=== PATIENT | male | born 1975 | race Two or more races ===

== ENCOUNTER 2019-01-08 11:54 | Emergency (ER) | payer OTHER ==
[~2019-01-08] VITALS: Ht 177.8 cm; Wt 102.1 kg
[2019-01-08] MEDS ORDERED: NEURONTIN300 MG (12:35)
== END 2019-01-08 15:06 | disposition home or self-care (01) ==
LOC: ER 11:54
DX: H92.01 Otalgia, right ear (principal)

== ENCOUNTER 2021-11-25 23:17 | Emergency (ER) | payer OTHER ==
[~2021-11-25] VITALS: Ht 177.8 cm; Wt 101.6 kg
[~2021-11-25 23:17] MED LIST: NEURONTIN300 MG
[2021-11-25] MEDS ORDERED: METFORMIN HCL500 M1 PO (23:40)
[2021-11-25] MEDS ORDERED: LOSARTAN POTASS25 MG PO (23:41)
[2021-11-25] MEDS ORDERED: ATORVASTATIN CA20 MG PO (23:41)
[2021-11-26] MEDS ORDERED: LEVOFLOXACIN500 MG PO (04:14)
[2021-11-26] MEDS ORDERED: DICLOFENAC POTA50 MG PO (04:14)
== END 2021-11-26 05:57 | disposition home or self-care (01) ==
LOC: ER 23:17
DX: L97.821 Non-pressure chronic ulcer of other part of left lower leg limited to breakdown of skin (principal); W19.XXXA Unspecified fall, initial encounter; Y93.9 Activity, unspecified; Y92.019 Unspecified place in single-family (private) house as the place of occurrence of the external cause

== ENCOUNTER 2023-02-09 23:59 | Emergency (ER) | payer OTHER ==
[~2023-02-09] VITALS: Ht 177.8 cm; Wt 104.3 kg
[~2023-02-09 23:59] MED LIST changes: +ATORVASTATIN CA20 MG PO; +DICLOFENAC POTA50 MG PO; +LEVOFLOXACIN500 MG PO; +LOSARTAN POTASS25 MG PO; +METFORMIN HCL500 M1 PO
[2023-02-10 04:02] LABS: HEMATOCRIT 48.8 % (39.0-48.0); HEMOGLOBIN 17.3 g/dL (13-16.00); MEAN CELL VOLUME 83.3 fL (80.0-100.00); MEAN CORPUSCULAR HEMOGLOBIN 29.5 pg (27.00-32.0); MEAN CORPUSCULAR HGB CONC 35.5 g/dl (32.0-36.0); PLATELET COUNT 240 K/uL (150-450); RED BLOOD COUNT 5.86 M/uL (4.00-6.00); RED CELL DISTRIBUTION WIDTH 13.8 % (11.5-14.5)
[2023-02-10 04:05] LABS: CALCIUM 9.8 mg/dL (8.5-10.1); CREATININE SERUM 1.01 mg/dL (0.70-1.30); GFR 78.51; POTASSIUM 3.9 mEq/L (3.5-5.1)
== END 2023-02-10 05:05 | disposition home or self-care (01) ==
LOC: ER 23:59
DX: K21.9 Gastro-esophageal reflux disease without esophagitis (principal); K29.60 Other gastritis without bleeding; E11.43 Type 2 diabetes mellitus with diabetic autonomic (poly)neuropathy

== ENCOUNTER 2023-02-12 09:55 | Emergency (ER) | payer OTHER ==
[~2023-02-12] VITALS: Ht 172.7 cm; Wt 78.5 kg
== END 2023-02-12 12:35 | disposition home or self-care (01) ==
LOC: ER 09:55
DX: J06.9 Acute upper respiratory infection, unspecified (principal); E11.9 Type 2 diabetes mellitus without complications; Z79.84 Long term (current) use of oral hypoglycemic drugs; I10 Essential (primary) hypertension

== ENCOUNTER 2024-05-29 10:46 | Emergency (ER) | payer OTHER ==
[~2024-05-29] VITALS: Ht 177.8 cm; Wt 99.8 kg
[2024-05-29] MEDS ORDERED: JARDIANCE25 MG PO (10:50)
[2024-05-29 12:14] LABS: HEMATOCRIT 51.9 % (39.0-48.0); HEMOGLOBIN 18.6 g/dL (13-16.00); MEAN CORPUSCULAR HEMOGLOBIN 30.1 pg (27.00-32.0); MEAN CORPUSCULAR HGB CONC 35.8 g/dl (32.0-36.0); PLATELET COUNT 243 K/uL (150-450); RED BLOOD COUNT 6.17 M/uL (4.00-6.00); RED CELL DISTRIBUTION WIDTH 14.1 % (11.5-14.5)
[2024-05-29 12:15] LABS: PH,URINE 5.5 (5.0-8.0); URINE APPEARANCE Clear; URINE BILIRRUBIN Negative (NEGATIVE); URINE BLOOD Trace; URINE COLOR Yellow; URINE KETONE Negative (NEGATIVE); URINE LEUKOCYTE Negative; URINE NITRATE Negative; URINE PROTEIN Negative (NEGATIVE); URINE UROBILINOGEN 0.2 E.U./dl
[2024-05-29 12:25] LABS: CALCIUM 9.5 mg/dL (8.5-10.1); GFR 79.09; POTASSIUM 4.18 mEq/L (3.5-5.1)
[2024-05-29 12:39] LABS: URINE GLUCOSE >=1000 MG/DL (NEGATIVE)
[2024-05-29 12:40] LABS: URINE BACTERIA 3.6 uL (0.0-1933); URINE CAST 0.14 uL (0.0-1.40); URINE EPITHELIAL CELLS 0.4 uL (0.0-38.8); URINE WBC 0.9 uL (0.0-23.2)
[2024-05-29] MEDS ORDERED: KETOROLAC TROMETHAMINE 30 MG VIAL IM STA (13:14)
[2024-05-29] MEDS ORDERED: KETOROLAC TROMETHAMINE 30 MG VIAL ONE (13:20)
== END 2024-05-29 13:38 | disposition home or self-care (01) ==
LOC: ER 10:47
PROVIDERS: General Practice
DX: N50.812 Left testicular pain (principal); N50.811 Right testicular pain; N43.2 Other hydrocele